=== PATIENT | female | born 1975 | race Caucasian/White ===

== ENCOUNTER 2017-03-29 15:35 | Emergency (ER) | payer OTHER ==
[~2017-03-29] VITALS: Ht 165.1 cm; Wt 60.1 kg
[~2017-03-29 15:35] MED LIST: ADVIL200 M3 PO; ALPRAZOLAM0.25 M2 PO; AMITRIPTYLINE H50 M1 PO; ANAPROX DS550 M1 PO; ASPIR-LOW81 MG PO; CELEXA40 MG PO; CLINDAMYCIN HC300 MG PO; DIAZEPAM5 MG PO; DOXYCYCLINE HY100 MG PO; ENDOCET 5-3251 EACH PO; ENDOCET 7.5-321 EACH PO; ESTRACE0.5 MG PO; ESTRACE1 MG PO; ESTRADIOL TRAN TD; ESTRADIOL0.5 MG PO; ESTRADIOL2 MG; FLEXERIL10 MG PO; GABAPENTIN300 MG PO; LEVAQUIN750 MG PO; MEDROL DOSEPAK4 MG PO; MINIVELLE1 EAC1 TD; MORPHINE SULFAT15 M1 PO; MOTRIN600 MG PO; MS CONTIN,ORAMO15 M1 PO; MULTIVITAMIN1 EAC2 PO; Motrin PO; NAPROSYN500 MG PO; NEURONTIN300 MG PO; NEURONTIN400 MG PO; NEURONTIN800 MG PO; NEXIUM40 MG PO; NOHOMEMEDS; NORCO 7.5/321 TABLET PO; PERCOCET 5/31 TABLET PO; PERCOCET 7.51 TABLET PO; PREDNISONE20 MG PO; PREVACID15 MG PO; PYRIDIUM100 MG PO; THERAGRAN1 TABLET PO; TOPROL XL; Theragran W/Iron,MVI PO; ULTRAM50 MG PO; VALIUM5 MG PO; VIBRAMYCIN100 MG PO; VICODIN,LORT1 TABLET PO; WOMEN'S DAILY1 EAC1 PO; XANAX PO; XANAX XR0.5 MG PO; XANAX0.25 MG PO; XANAX0.5 MG PO; XARTEMIS XR 7.1 EACH PO; ZANAFLEX2 M1 PO; ZANAFLEX2 MG PO; ZOFRAN ODT8 MG PO; [UNRECOGNIZED DRUG - CODE]
[2017-03-29] MEDS ORDERED: OXYCODONE-APAP1 EAC6 PO (16:34)
[2017-03-29 16:36] LABS: HEMATOCRIT 41.3 % (36.0-46.0); MCH 29.7 PG (29.0-34.0); MCV 92.8 FL (83-99); MEAN PLAT.VOLUME 8.5 uM^3 (9.5-12.4); PLATELET COUNT 274 K/uL (156-360); RBC DIS.WIDTH-CV 12.2 % (11.8-14.6); RBC DIS.WIDTH-SD 41.9 % (39-53); RED BLOOD COUNT 4.45 M/uL (3.80-5.20); WHITE BLOOD COUNT 3.5 K/uL (4.1-10.2)
[2017-03-29 16:44] LABS: CHLORIDE 105 mEq/L (99-109); POTASSIUM 4.5 mEq/L (3.7-5.4); SODIUM 140 mEq/L (136-147)
[2017-03-29 16:46] LABS: GLUCOSE 90 mg/dL (70-99)
[2017-03-29 16:47] LABS: ANION GAP 6 MEQ/L (2-14)
[2017-03-29 16:48] LABS: TOTAL BILIRUBIN 0.3 mg/dL (0.0-1.0)
[2017-03-29 16:50] LABS: ALKALINE PHOSPHATASE 46 IU/L (3-129); GFR ESTIMATE (CALCULATED) > 59 mL/min/
[2017-03-29 16:51] LABS: UREA NITROGEN (BUN) 11 mg/dL (9-23)
[2017-03-29 16:59] LABS: QUANTITATIVE HCG < 4.0 MIU/ML
[2017-03-29 17:03] LABS: ADD MIUA? YES; BILIRUBIN NEGATIVE; BLOOD NEGATIVE; COLOR YELLOW ((YELLOW)); GLUCOSE (STRIP) NEGATIVE; KETONES NEGATIVE; LEUKOCYTES NEGATIVE; NITRITE NEGATIVE; PROTEIN (STRIP) 30; SPECIFIC GRAVITY 1.017 (1.000-1.030); UROBILINOGEN 0.2 MG/DL (0.2-1.0)
[2017-03-29 17:08] LABS: BACTERIA RARE /HPF; EPITHELIAL CELLS RARE /HPF; MUCUS TRACE /LPF; RED BLOOD CELLS 0-5 /HPF (0-5); UCUL ADDED? NO; WHITE BLOOD CELLS 0-5 /HPF (0-5)
[2017-03-29] MEDS ORDERED: DOXYCYCLINE HY100 MG PO (19:07)
[2017-03-29 20:37] VITALS: BP 109/78
== END 2017-03-29 20:39 | disposition home or self-care (01) ==
LOC: EME 15:35
DX: K51.30 Ulcerative (chronic) rectosigmoiditis without complications (principal); Z87.891 Personal history of nicotine dependence
CPT/HCPCS: 74177; 80053; 81003; 84702; 85027; 99281; 99284; J0696; J1200; J2405; J2930; J7030; J7050

== ENCOUNTER 2017-06-16 01:19 | Emergency (ER) | payer OTHER ==
[~2017-06-16] VITALS: Ht 165.1 cm; Wt 60.5 kg
[~2017-06-16 01:19] MED LIST changes: +BACLOFEN10 MG PO; +CIPRO500 MG PO; +IBUPROFEN800 MG PO; +METROGEL-VAGINA70 GM VG; +OXYCODONE-APAP1 EAC6 PO
[2017-06-16] MEDS ORDERED: INDOCIN50 MG PO (02:10)
[2017-06-16] MEDS ORDERED: VALIUM5 MG PO (02:10)
[2017-06-16 02:28] VITALS: BP 104/70
== END 2017-06-16 02:10 | disposition home or self-care (01) ==
LOC: EME 01:19
DX: S46.912A Strain of unspecified muscle, fascia and tendon at shoulder and upper arm level, left arm, initial encounter (principal); X50.0XXA Overexertion from strenuous movement or load, initial encounter; F17.200 Nicotine dependence, unspecified, uncomplicated; Z88.1 Allergy status to other antibiotic agents; Z88.0 Allergy status to penicillin
CPT/HCPCS: 99281; 99283

== ENCOUNTER 2017-08-29 12:44 | Emergency (ER) | payer OTHER ==
[~2017-08-29] VITALS: Ht 165.1 cm; Wt 58.9 kg
[~2017-08-29 12:44] MED LIST changes: +INDOCIN50 MG PO
[2017-08-29] MEDS ORDERED: NAPROXEN500 MG PO (16:16)
[2017-08-29 16:50] VITALS: BP 100/52
== END 2017-08-29 16:51 | disposition home or self-care (01) ==
LOC: EME 12:44
DX: S00.83XA Contusion of other part of head, initial encounter (principal); W50.0XXA Accidental hit or strike by another person, initial encounter; Z86.14 Personal history of Methicillin resistant Staphylococcus aureus infection; Z87.19 Personal history of other diseases of the digestive system; Z90.710 Acquired absence of both cervix and uterus; F17.200 Nicotine dependence, unspecified, uncomplicated; Z88.0 Allergy status to penicillin; Z88.1 Allergy status to other antibiotic agents; Z88.5 Allergy status to narcotic agent
CPT/HCPCS: 70150; 99281; 99283; J1885

== ENCOUNTER 2017-09-21 14:37 | Emergency (ER) | payer OTHER ==
[~2017-09-21] VITALS: Ht 165.1 cm; Wt 57.5 kg
[~2017-09-21 14:37] MED LIST changes: +NAPROXEN500 MG PO
[2017-09-21] MEDS ORDERED: TRAMADOL HCL50 MG PO (18:16)
[2017-09-21 18:49] VITALS: BP 101/69
== END 2017-09-21 18:50 | disposition home or self-care (01) ==
LOC: EME 14:37
DX: M79.661 Pain in right lower leg (principal); M79.89 Other specified soft tissue disorders
CPT/HCPCS: 93971; J1885

== ENCOUNTER 2018-01-03 02:31 | Emergency (ER) | payer OTHER ==
[~2018-01-03] VITALS: Ht 165.1 cm; Wt 59.0 kg
[~2018-01-03 02:31] MED LIST changes: +TRAMADOL HCL50 MG PO
[2018-01-03] MEDS ORDERED: PERCOCET 5/31 TABLET PO (04:56)
[2018-01-03 05:34] VITALS: BP 119/78
== END 2018-01-03 05:34 | disposition home or self-care (01) ==
LOC: EME 02:31
DX: S93.602A Unspecified sprain of left foot, initial encounter (principal); X50.1XXA Overexertion from prolonged static or awkward postures, initial encounter; Z87.891 Personal history of nicotine dependence
CPT/HCPCS: 73610; 73630; 99281; 99284